=== PATIENT | male | born 1990 | race Two or more races ===

== ENCOUNTER → 2019-08-28 | Emergency (ER) | payer SELFPAY ==
[~2019-08-28] VITALS: Ht 170.2 cm; Wt 57.2 kg
[~2019-08-28] MED LIST: AZITHROMYCIN 250 MG TAB PO ONE; cefTRIAXone SODIUM 250 MG VL IM ONE
[2019-08-28 15:08] VITALS: BP 112/61
== END | disposition home or self-care (01) ==
LOC: ER 14:40
DX: R51 Headache (principal)

== ENCOUNTER 2019-11-12 08:25 | Emergency (ER) | payer SELFPAY ==
[~2019-11-12] VITALS: Ht 170.2 cm; Wt 59.0 kg
[2019-11-12 08:34] VITALS: BP 111/66
== END 2019-11-12 09:07 | disposition home or self-care (01) ==
LOC: ER 08:25
DX: H10.31 Unspecified acute conjunctivitis, right eye (principal); H11.31 Conjunctival hemorrhage, right eye

== ENCOUNTER 2019-11-14 07:43 | Emergency (ER) | payer SELFPAY ==
[~2019-11-14] VITALS: Ht 170.2 cm; Wt 59.0 kg
[2019-11-14 07:56] VITALS: BP 107/65
== END 2019-11-14 08:02 | disposition home or self-care (01) ==
LOC: ER 07:43
DX: H10.31 Unspecified acute conjunctivitis, right eye (principal)

== ENCOUNTER 2019-11-15 23:08 | Emergency (ER) | payer SELFPAY ==
[~2019-11-15] VITALS: Ht 170.2 cm; Wt 63.5 kg
[2019-11-16 02:12] VITALS: BP 118/62
== END 2019-11-16 02:34 | disposition home or self-care (01) ==
LOC: ER 23:08
DX: H10.33 Unspecified acute conjunctivitis, bilateral (principal)

== ENCOUNTER 2019-12-16 09:25 | Emergency (ER) | payer SELFPAY ==
[~2019-12-16] VITALS: Ht 170.2 cm; Wt 63.5 kg
[2019-12-16 09:32] VITALS: BP 95/57
[2019-12-16] MEDS ORDERED: KETOROLAC TROMETH 60MG/2ML VIAL IM ONE (10:15)
== END 2019-12-16 10:46 | disposition home or self-care (01) ==
LOC: ER 09:25
DX: S83.91XA Sprain of unspecified site of right knee, initial encounter (principal); W19.XXXA Unspecified fall, initial encounter; Y93.89 Activity, other specified; Y92.89 Other specified places as the place of occurrence of the external cause; Y99.0 Civilian activity done for income or pay
CPT/HCPCS: 73562; 96372; 99283; J1885

== ENCOUNTER 2020-01-28 22:13 | Emergency (ER) | payer OTHER ==
[~2020-01-28] VITALS: Ht 170.2 cm; Wt 63.5 kg
[2020-01-29 01:30] VITALS: BP 105/51
[2020-01-29] MEDS: IBUPROFEN 800 MG TAB PO ONE ×2 (01:30→02:16)
== END 2020-01-29 01:50 | disposition home or self-care (01) ==
LOC: ER 22:14
DX: G43.909 Migraine, unspecified, not intractable, without status migrainosus (principal)
CPT/HCPCS: 70450

== ENCOUNTER 2020-01-30 11:19 | Emergency (ER) | payer SELFPAY ==
[~2020-01-30] VITALS: Ht 170.2 cm; Wt 63.5 kg
[2020-01-30 11:28] VITALS: BP 110/76
== END 2020-01-30 13:15 | disposition home or self-care (01) ==
LOC: ER 11:19
DX: J06.9 Acute upper respiratory infection, unspecified (principal)
CPT/HCPCS: 71045

== ENCOUNTER 2020-02-01 06:25 | Emergency (ER) | payer SELFPAY ==
[~2020-02-01] VITALS: Ht 170.2 cm; Wt 63.5 kg
[2020-02-01 06:47] VITALS: BP 100/62
== END 2020-02-01 08:54 | disposition home or self-care (01) ==
LOC: ER 06:25
DX: F41.9 Anxiety disorder, unspecified (principal); F17.210 Nicotine dependence, cigarettes, uncomplicated; F12.10 Cannabis abuse, uncomplicated
CPT/HCPCS: 93005

== ENCOUNTER 2020-02-04 22:08 | Emergency (ER) | payer OTHER ==
[~2020-02-04] VITALS: Ht 170.2 cm; Wt 63.5 kg
[2020-02-04 23:13] VITALS: BP 104/76
[2020-02-04] MEDS ORDERED: SUMAtriptan SUCCINATE 6 MG/0.5 ML VL SC ONE (23:45)
== END 2020-02-05 00:51 | disposition home or self-care (01) ==
LOC: ER 22:08
DX: G43.909 Migraine, unspecified, not intractable, without status migrainosus (principal); F17.210 Nicotine dependence, cigarettes, uncomplicated
CPT/HCPCS: 96372; 99283; J3030

== ENCOUNTER 2020-02-20 08:21 | Emergency (ER) | payer OTHER ==
[~2020-02-20] VITALS: Ht 170.2 cm; Wt 63.5 kg
[2020-02-20 09:51] VITALS: BP 106/62
== END 2020-02-20 10:21 | disposition home or self-care (01) ==
LOC: ER 08:21
DX: S96.911A Strain of unspecified muscle and tendon at ankle and foot level, right foot, initial encounter (principal); F17.210 Nicotine dependence, cigarettes, uncomplicated; F12.10 Cannabis abuse, uncomplicated; V43.52XA Car driver injured in collision with other type car in traffic accident, initial encounter; Y93.89 Activity, other specified; Y92.89 Other specified places as the place of occurrence of the external cause; Y99.8 Other external cause status

== ENCOUNTER 2020-03-23 12:20 | Emergency (ER) | payer SELFPAY ==
[~2020-03-23] VITALS: Ht 170.2 cm; Wt 63.5 kg
[2020-03-23 12:55] LABS: Urine Bacteria NONE SEEN /hpf (None Seen); Urine Blood Negative /uL (Negative); Urine Specific Gravity 1.004 (1.001-1.035); Urine Sperm PRESENT /hpf (None Seen); Urine WBC 5 /hpf (0 - 3)
[2020-03-23 14:11] VITALS: BP 107/63
== END 2020-03-23 14:14 | disposition home or self-care (01) ==
LOC: ER 12:20
DX: R11.10 Vomiting, unspecified (principal); F12.90 Cannabis use, unspecified, uncomplicated; R10.9 Unspecified abdominal pain; F17.210 Nicotine dependence, cigarettes, uncomplicated
CPT/HCPCS: 81001

== ENCOUNTER 2020-03-29 07:54 | Emergency (ER) | payer OTHER ==
[~2020-03-29] VITALS: Ht 170.2 cm; Wt 63.5 kg
[2020-03-29 08:12] VITALS: BP 98/70
[2020-03-29] MEDS ORDERED: IBUPROFEN 800 MG TAB PO ONE (09:15)
== END 2020-03-29 09:19 | disposition home or self-care (01) ==
LOC: ER 07:54
DX: S29.011A Strain of muscle and tendon of front wall of thorax, initial encounter (principal); F17.210 Nicotine dependence, cigarettes, uncomplicated; X50.9XXA Other and unspecified overexertion or strenuous movements or postures, initial encounter; Y93.89 Activity, other specified; Y92.89 Other specified places as the place of occurrence of the external cause; Y99.8 Other external cause status
CPT/HCPCS: 71046

== ENCOUNTER 2021-01-30 11:33 | Emergency (ER) | payer OTHER ==
[~2021-01-30] VITALS: Ht 170.2 cm; Wt 63.5 kg
[2021-01-30 13:21] VITALS: BP 110/62
== END 2021-01-30 14:59 | disposition home or self-care (01) ==
LOC: ER 11:33
DX: H10.31 Unspecified acute conjunctivitis, right eye (principal); F17.210 Nicotine dependence, cigarettes, uncomplicated; F12.10 Cannabis abuse, uncomplicated

== ENCOUNTER 2021-02-04 09:37 | Emergency (ER) | payer OTHER ==
[~2021-02-04] VITALS: Ht 152.4 cm; Wt 61.2 kg
[2021-02-04 10:50] VITALS: BP 117/71
== END 2021-02-04 11:53 | disposition home or self-care (01) ==
LOC: ER 09:37
DX: S00.83XA Contusion of other part of head, initial encounter (principal); F17.210 Nicotine dependence, cigarettes, uncomplicated; F12.10 Cannabis abuse, uncomplicated; R51.9 Headache, unspecified; F41.9 Anxiety disorder, unspecified; W18.09XA Striking against other object with subsequent fall, initial encounter; Y93.89 Activity, other specified; Y92.89 Other specified places as the place of occurrence of the external cause; Y99.8 Other external cause status
CPT/HCPCS: 70450; 70486